=== PATIENT | female | born 1965 | race Caucasian/White ===

== ENCOUNTER 2021-01-12 06:47 | Emergency (ER) | payer OTHER ==
[~2021-01-12 06:47] MED LIST: FLEXERIL 10 MG10 MG PO; PREDNISONE 50 M50 MG PO; Voltaren Gel 1 % TOP
== END 2021-01-12 08:14 | disposition home or self-care (01) ==
LOC: ER1 06:47
DX: J95.03 Malfunction of tracheostomy stoma (principal); C32.9 Malignant neoplasm of larynx, unspecified; Z90.89 Acquired absence of other organs; Z87.891 Personal history of nicotine dependence
CPT/HCPCS: 99283

== ENCOUNTER 2022-02-14 17:06 | Emergency (ER) | payer OTHER ==
[2022-02-14 17:28] LABS: HEMOGLOBIN 15.3 gm/dl (12.3-15.3); RED BLOOD COUNT 4.99 M/UL (4.00-5.10); WHITE BLOOD COUNT 8.9 K/UL (4.5-11.0)
[2022-02-14] MEDS ORDERED: K-TAB ER20 MEQ PO (22:00)
[2022-02-14] MEDS ORDERED: ONDANSETRON ODT4 MG SL (22:00)
[2022-02-14] MEDS ORDERED: VANCOMYCIN HCL125 MG PO (22:00)
== END 2022-02-14 22:19 | disposition home or self-care (01) ==
LOC: ER1 17:06
PROVIDERS: Physician Assistant
DX: R10.84 Generalized abdominal pain (principal); R11.2 Nausea with vomiting, unspecified; R19.7 Diarrhea, unspecified; E87.6 Hypokalemia; Z90.89 Acquired absence of other organs; Z87.891 Personal history of nicotine dependence; Z85.818 Personal history of malignant neoplasm of other sites of lip, oral cavity, and pharynx; Z85.828 Personal history of other malignant neoplasm of skin
CPT/HCPCS: 80053; 82550; 82553; 83605; 83690; 84484; 85025; 94760; 96374; 96375; 99284; J2405; J3480

== ENCOUNTER 2022-02-17 13:26 | Inpatient (IN) | payer OTHER ==
[~2022-02-17] VITALS: Ht 160 cm; Wt 43.2 kg
[~2022-02-17 13:26] MED LIST changes: +K-TAB ER20 MEQ PO; +ONDANSETRON ODT4 MG SL; +VANCOMYCIN HCL125 MG PO
[2022-02-17 15:47] LABS: HEMOGLOBIN 16.1 gm/dl (12.3-15.3); RED BLOOD COUNT 5.27 M/UL (4.00-5.10); WHITE BLOOD COUNT 12.3 K/UL (4.5-11.0)
[2022-02-17 16:34] LABS: BUN/CREATININE RATIO 26 (0-10)
[2022-02-17] MEDS ORDERED: ASPIRIN EC81 MG PO (18:22)
[2022-02-17] MEDS ORDERED: KEYTRUDA100 MG/4 M IV (18:23)
[2022-02-18 03:00] LABS: HEMOGLOBIN 14.7 gm/dl (12.3-15.3); RED BLOOD COUNT 4.85 M/UL (4.00-5.10)
--- NOTE | 2022-02-18 17:49 | NUR ---
PATIENT UNHAPPY AND DOES NOT UNDERSTAND WHY THE DOCTOR KEEPS ORDERING MEDICATIONS FOR HER TO TAKE. SHE STATES, "I JUST WANT TO FREAKING REST. MY STOMACH NEEDS A BREAK. ALL OF THESE MEDICATIONS MY LITTLE BODY CAN NOT TAKE." PATIENT POTASSIUM IS 3.0. PATIENT EDUCATED ON IMPORTANCE OF TAKEN POTASSIUM. DR WHITTINGTON IN THE ROOM AND EDUCATED PATIENT WELL. PATIENT WILL TAKE A COUPLE POTASSIUM PILLS THEN SPITS IT OUT AND LEAVES IT LAYING ON THE BEDSIDE TABLE. PATIENT REFUSING TO TAKE ANYMORE PILLS BY MOUTH.
[2022-02-18 19:13] LABS: ADENOVIRUS F 40/41 Not Detected (Negative); ASTROVIRUS Not Detected (Negative); CAMPYLOBACTER Not Detected (Negative); CRYPTOSPORIDIUM Not Detected (Negative); E.COLI 0157 Not Detected (Negative); ENTAMOEBA HISTOLYTICA Not Detected (Negative); ENTEROAGGREGATIVE E.COLI (EAEC Not Detected (Negative); ENTEROPATHOGENIC E.COLI (EPEC) Not Detected (Negative); ENTEROTOXIGENIC E.COLI (ETEC) Not Detected (Negative); GIARDIA LAMBLIA Not Detected (Negative); PLESIOMONAS SHIGELLOIDES Not Detected (Negative); ROTOVIRUS A Not Detected (Negative); SALMONELLA Not Detected (Negative); SAPOVIRUS Not Detected (Negative); SHIG/ENTEROINVAS.ECOLI (EIEC) Not Detected (Negative); SHIGA-LIK TOX.PRO.E.COLI (STEC Not Detected (Negative); VIBRIO Not Detected (Negative); VIBRIO CHOLERAE Not Detected (Negative); YERSINIA ENTEROCOLITICA Not Detected (Negative)
[2022-02-19 03:33] LABS: HEMOGLOBIN 15.8 gm/dl (12.3-15.3); RED BLOOD COUNT 5.19 M/UL (4.00-5.10); WHITE BLOOD COUNT 16.9 K/UL (4.5-11.0)
[2022-02-19 03:51] LABS: BUN/CREATININE RATIO 21 (0-10)
[2022-02-19 07:50] LABS: NOROVIRUS GI/GII DETECTED (Negative)
[2022-02-20 04:53] LABS: HEMOGLOBIN 15.1 gm/dl (12.3-15.3); RED BLOOD COUNT 4.92 M/UL (4.00-5.10); WHITE BLOOD COUNT 13.2 K/UL (4.5-11.0)
[2022-02-20 05:24] LABS: BUN/CREATININE RATIO 22 (0-10)
[2022-02-21 06:29] LABS: HEMOGLOBIN 14.8 gm/dl (12.3-15.3); RED BLOOD COUNT 4.83 M/UL (4.00-5.10); WHITE BLOOD COUNT 13.9 K/UL (4.5-11.0)
[2022-02-21 06:59] LABS: BUN/CREATININE RATIO 21 (0-10)
--- NOTE | 2022-02-21 13:54 | NUR ---
patient ambulates with assistance from bed to bathroom. patient with 1 assist
[2022-02-22 07:07] LABS: BUN/CREATININE RATIO 24 (0-10)
--- NOTE | 2022-02-22 18:30 | NUR ---
informed dr. katz when she was making her rounds that patient refused to take her potassium and will try to give her via IV this evening. dr. katz agreeable
[2022-02-23 07:32] LABS: HEMOGLOBIN 15.2 gm/dl (12.3-15.3); RED BLOOD COUNT 5.16 M/UL (4.00-5.10); WHITE BLOOD COUNT 9.9 K/UL (4.5-11.0)
[2022-02-23 07:35] LABS: BUN/CREATININE RATIO 25 (0-10)
[2022-02-23] MEDS ORDERED: SYNTHROID50 MCG PO (18:05)
[2022-02-23] MEDS ORDERED: VANCOCIN 125 M125 MG PO (18:05)
[2022-02-23] MEDS ORDERED: LEVOTHYROXINE75 MC1 PO (18:24)
[2022-02-23] MEDS ORDERED: PHOS-NAK PACKET1 EA PO (18:24)
[2022-02-23] MEDS ORDERED: PHENERGAN 25 MG25 M1 PO (18:24)
[2022-02-23] MEDS ORDERED: FAMOTIDINE20 MG PO (18:24)
[2022-02-23] MEDS ORDERED: K-TAB ER20 MEQ PO (18:24)
[2022-02-23] MEDS ORDERED: METRONIDAZOLE500 MG PO (18:24)
[2022-02-23] MEDS ORDERED: LEVOFLOXACIN750 MG PO (18:24)
[2022-02-23] MEDS ORDERED: MAGNESIUM OXID400 M1 PO (18:34)
--- NOTE | 2022-02-23 19:14 | NUR ---
REPORT CALLED TO NATALEE AT [facility]. PATIENT IV REMOVED, CATHETER TIP INTACT. PATIENT TOLERATED WELL.
== END 2022-02-23 19:10 | disposition home health service (06) | DRG 391 ==
LOC: ER1 13:26 → CDU 17:42 → MED SURG 4 17:42
PROVIDERS: Emergency Medicine; Internal Medicine; Internal Medicine Nephrology; ADMIT Internal Medicine
DX: A08.11 Acute gastroenteropathy due to Norwalk agent (principal); J18.9 Pneumonia, unspecified organism; E87.2 Acidosis; K56.7 Ileus, unspecified; Z20.822 Contact with and (suspected) exposure to COVID-19; Z68.1 Body mass index [BMI] 19.9 or less, adult; E44.0 Moderate protein-calorie malnutrition; A04.72 Enterocolitis due to Clostridium difficile, not specified as recurrent; E83.42 Hypomagnesemia; F17.210 Nicotine dependence, cigarettes, uncomplicated; E83.39 Other disorders of phosphorus metabolism; E87.6 Hypokalemia; E03.9 Hypothyroidism, unspecified; E86.0 Dehydration; I95.9 Hypotension, unspecified; Z87.81 Personal history of (healed) traumatic fracture; Z85.21 Personal history of malignant neoplasm of larynx; Z93.0 Tracheostomy status; Z79.01 Long term (current) use of anticoagulants; Z79.82 Long term (current) use of aspirin; Z71.6 Tobacco abuse counseling
CPT/HCPCS: 36415; 71045; 74018; 80048; 80053; 82533; 83690; 83735; 84100; 84132; 84439; 84443; 85025; 85610; 85730; 86140; 87449; 87507; 96361; 96365; 96375; 99285; C9113; J0692; J1650; J2270; J2405; J2550; J3370; J3475; J3480; J7030; J7070; Q9967

== ENCOUNTER 2022-03-22 23:35 | Inpatient (IN) | payer OTHER ==
[~2022-03-22] VITALS: Ht 160 cm; Wt 38.6 kg
[~2022-03-22 23:35] MED LIST changes: +ASPIRIN EC81 MG PO; +FAMOTIDINE20 MG PO; +KEYTRUDA100 MG/4 M IV; +LEVOFLOXACIN750 MG PO; +LEVOTHYROXINE75 MC1 PO; +MAGNESIUM OXID400 M1 PO; +METRONIDAZOLE500 MG PO; +PHENERGAN 25 MG25 M1 PO; +PHOS-NAK PACKET1 EA PO; +SYNTHROID50 MCG PO; +VANCOCIN 125 M125 MG PO
[2022-03-23 00:50] LABS: HEMOGLOBIN 12.5 gm/dl (12.3-15.3); RED BLOOD COUNT 4.02 M/UL (4.00-5.10); WHITE BLOOD COUNT 8.3 K/UL (4.5-11.0)
[2022-03-23 01:11] LABS: BUN/CREATININE RATIO 21 (0-10)
[2022-03-23] MEDS ORDERED: FAMOTIDINE20 MG PO (09:41)
[2022-03-23] MEDS ORDERED: LEVOTHYROXINE75 MCG PO (09:41)
[2022-03-23] MEDS ORDERED: PROMETHAZINE HC25 M1 PO (09:42)
[2022-03-23] MEDS ORDERED: DIAZEPAM5 MG PO (09:43)
[2022-03-23 23:23] LABS: HEMOGLOBIN 13.7 gm/dl (12.3-15.3); RED BLOOD COUNT 4.48 M/UL (4.00-5.10); WHITE BLOOD COUNT 11.3 K/UL (4.5-11.0)
--- NOTE | 2022-03-24 00:27 | NUR ---
OBTAINED ORDER TO START HEPARIN DRIP ON PATIENT PER PROTOCOL. HOWEVER, THE PATIENT IS UNDERWEIGHT. PATIENT'S WEIGHT IS NOT LISTED ON THE HEPARIN PROTOCOL SHEET. WAS NOTIFIED OF THIS AND HEPARIN DRIP WAS STARTED PER APPROPRIATE DOSING FROM PHARMACY.
--- NOTE | 2022-03-24 05:30 | NUR ---
APPROX. 0512: PATIENT STARTED HAVING BACK TO BACK SEIZURES. WAS NOTIFIED. OBTAINED ORDER FOR ATIVAN 2MG IV ONCE. IV ATIVAN WAS NOT AVAILABLE ON THE FLOOR. AWAITED FOR PHARMACY TO BRING OVER. ATIVAN WAS INEFFECTIVE FOR SEIZURE. PATIENT STILL SEIZING UNCONTROLLABLY. PATIENT HAD NO OTHER ORDERS FOR ATIVAN IV. ATTEMPTED TO CALL MULTIPLE TIMES. HOWEVER, NO ANSWER AND NO NEW ORDERS OBTAINED. APPROX 0530: POLICY CHECKER WAS CALLED ON PATIENT. APPROX. 0532: GAUGE AND WEIGH MACHINE ADJUSTER, AND ADDITIONAL STAFF ARRIVE. ARRIVED TO PATIENT'S BEDSIDE AND DETERMINED THAT THE PATIENT WAS POSTICTAL, DESPITE PRIMARY RN'S CONCERNS AND ORDERED IV DILANTIN. PATIENT STILL EXPERIENCING RAPID EYE MOVEMENT AND BLINKING UNCONTROLLABLY. PATIENT HAD NOT RETURNED TO BASELINE. IV DILANTIN LOADING DOSE WAS ORDERED PER . DOSED PER PHARMACY.
[2022-03-24 07:08] LABS: HEMOGLOBIN 14.8 gm/dl (12.3-15.3); RED BLOOD COUNT 4.78 M/UL (4.00-5.10)
[2022-03-24 07:12] LABS: WHITE BLOOD COUNT 16.9 K/UL (4.5-11.0)
[2022-03-24 07:29] LABS: BUN/CREATININE RATIO 24 (0-10)
--- NOTE | 2022-03-24 10:54 | NUR ---
CALLED DR. CASTRO AT 0812 THIS AM AND STATED MY CONCERNS ABOUT THE PTS CONDITION FROM THE DIGESTER COOK SEIZURE. MD AGREED WITH CONCERN AND ORDERED A TRANSFER TO PCU.
--- NOTE | 2022-03-24 17:39 | NUR ---
03/24/22 1649 RADIOLOGIST CALLED WITH MRI RESULTS
[2022-03-25 08:24] LABS: HEMOGLOBIN 14.6 gm/dl (12.3-15.3); RED BLOOD COUNT 4.71 M/UL (4.00-5.10)
[2022-03-25 08:39] LABS: BUN/CREATININE RATIO 28 (0-10)
[2022-03-26 02:21] LABS: HEMOGLOBIN 12.9 gm/dl (12.3-15.3); RED BLOOD COUNT 4.16 M/UL (4.00-5.10); WHITE BLOOD COUNT 12.6 K/UL (4.5-11.0)
[2022-03-26 02:45] LABS: BUN/CREATININE RATIO 30 (0-10)
[2022-03-26] MEDS ORDERED: CRESTOR40 MG PO (18:27)
[2022-03-26] MEDS ORDERED: ASPIRIN81 MG PO (18:27)
[2022-03-26] MEDS ORDERED: KEPPRA INJ (18:28)
[2022-03-26] MEDS ORDERED: ROCEPHIN 1 GM AD1 GM IV (18:30)
[2022-03-26] MEDS ORDERED: VANCOMYCIN IV (18:43)
[2022-03-26] MEDS ORDERED: PLAVIX 75 MG TA75 MG PO (18:43)
[2022-03-26] MEDS ORDERED: ROCEPHIN IV (18:43)
== END 2022-03-26 19:40 | DRG 64 ==
LOC: ER1 23:35 → CDU 03-23 03:25 → MED SURG 4 03-23 18:48 → PROG CARE 03-24 08:16
PROVIDERS: Family Medicine; Internal Medicine; Physician Assistant; ADMIT Internal Medicine
PROC: 05HY33Z Insertion of Infusion Device into Upper Vein, Percutaneous Approach (ICD-10-PCS; 2022-03-23)
PROC: 039Y3ZZ Drainage of Upper Artery, Percutaneous Approach (ICD-10-PCS; 2022-03-23)
PROC: B24BZZZ Ultrasonography of Heart with Aorta (ICD-10-PCS; principal; 2022-03-25)
DX: I63.9 Cerebral infarction, unspecified (principal); I21.A1 Myocardial infarction type 2; J90 Pleural effusion, not elsewhere classified; G93.49 Other encephalopathy; R64 Cachexia; M48.56XA Collapsed vertebra, not elsewhere classified, lumbar region, initial encounter for fracture; K76.0 Fatty (change of) liver, not elsewhere classified; Z66 Do not resuscitate; E03.9 Hypothyroidism, unspecified; E87.6 Hypokalemia; Z93.0 Tracheostomy status; Z92.21 Personal history of antineoplastic chemotherapy; C32.9 Malignant neoplasm of larynx, unspecified; F17.210 Nicotine dependence, cigarettes, uncomplicated; F12.10 Cannabis abuse, uncomplicated; F15.10 Other stimulant abuse, uncomplicated; R56.9 Unspecified convulsions
CPT/HCPCS: 36415; 36600; 70450; 70496; 70498; 70544; 70551; 71045; 76705; 80053; 80307; 81001; 82550; 82553; 82803; 83605; 83735; 84484; 85025; 85027; 85610; 85730; 87040; 87086; 92526; 92610; 93005; 95816; 96375; 97110-GP-CQ; 97162; 97166; 99285; G0378; J0696; J1165; J1644; J1953; J2060; J3370; J7030; J7070; Q9967